=== PATIENT | female | born 1960 | race Caucasian/White ===

== ENCOUNTER 2018-09-15 08:36 | Emergency (ER) | payer MEDICAID ==
--- NOTE | 2018-09-15 09:08 | EDM.PDOC ---
ED HPI GENERAL MEDICAL PROBLEM - General Chief Complaint: Lower Extremity Injury/Pain Stated Complaint: PAIN AND SWELLING IN R KNEE Time Seen by Provider: 09/15/18 09:00 - History of Present Illness INITIAL COMMENTS - FREE TEXT/NARRATIVE: patient presents with new onset right knee swelling and pain, unable to walk on it. Hurts to bend it. No injury (that she is aware of, however, has some significant short-term memory loss.) Son lives nearby, watches over her pretty closely. She has taken ibuprofen with no effect, hasn't tried anything else. Feels well otherwise, no fatigue, fevers, chills, sweats. No redness to knee. No known tick exposures; doesn't spent much time outside. Left wrist swelling also which she states is chronic, son doesn't think so. Right Knee Pain Score (Numeric/FACES): 8 - Related Data Allergies Allergy/AdvReac Type Severity Reaction Status Date / Time bee venom protein (honey bee) Allergy Swelling Verified 09/15/18 08:48 Home Meds: Home Meds Furosemide 40 mg PO DAILY 09/15/18 [History] Lisinopril 10 mg PO DAILY 09/15/18 [History] Meloxicam [Mobic] 7.5 mg PO DAILY #5 tablet 09/15/18 [Rx] Potassium Chloride 20 meq PO DAILY 09/15/18 [History] Pregabalin [Lyrica] 75 mg PO DAILY 09/15/18 [History] Past Medical History Cardiovascular History: Reports: Hypertension Respiratory History: Reports: COPD, Other (See Below) Other Respiratory History: septic pneumonia July 2018 Musculoskeletal History: Reports: Other (See Below) Other Musculoskeletal History: chronic left wrist swelling Social & Family History - Tobacco Use Smoking Status *Q: Current Every Day Smoker ED ROS GENERAL - Review of Systems Review Of Systems: ROS reveals no pertinent complaints other than HPI. ED EXAM, GENERAL - Physical Exam Exam: See Below Free Text/Narrative:: General: alert, pleasant no acute distress. Right knee: very slight swelling compared to left. Able to flex and extend with some pain, but has difficulty with any resisted flexion or extension due to pain, moving very slowly. Negative anterior/posterior drawer testing, but c/ o all over pain with varus/valgus stress. When fully extended, no palpable effusion, patella is not ballotable. There is no bruising or skin lesions, no erythema, not really even warm. Distal pulse and sensation are intact, no calf swelling. Left wrist is also swollen, although patient states is chronic. Swelling just above joint line on dorsal surface. No other obvious swollen joints. Course - Vital Signs Text/Narrative:: 2 days knee pain, no injury, patient otherwise feeling well, no signs of infection on exam. Will obtain xray. Discussed labs, patient states she is fine, given appearance I think this could be deferred. Last Recorded V/S: Last Vital Signs Temp 36.8 C 09/15/18 08:50 Pulse 67 09/15/18 08:50 Resp 18 09/15/18 08:50 BP 132/83 09/15/18 08:50 Pulse Ox 94 L 09/15/18 08:50 - Orders/Labs/Meds Orders: Active Orders 24 hr Category Date Time Status Knee 3V Rt [CR] Stat Exams 09/15/18 09:08 Taken - Re-Assessments/Exams Free Text/Narrative Re-Assessment/Exam: 09/15/18 09:45 xray reviewed, lateral compartment joint space narrowing, no fracture seen. Discussed NSAID use (takes ibuprofen chronically 800mg TID), trying naproxen - which has previously thought didn't help, alternately could try something like meloxicam, agreeable to short script. Discussed also ice, trying yolanda wrap, topical creams. Has walker at home (in car actually) but really doesn't like to use it. Followup with PCP for further workup. She is in agreement with this plan and has no further questions. Departure - Departure Time of Disposition: 09:58 Disposition: Home, Self-Care 01 Clinical Impression: Right knee pain Qualifiers: Chronicity: acute Qualified Code(s): M25.561 - Pain in right knee - Discharge Information *PRESCRIPTION DRUG MONITORING PROGRAM REVIEWED*: Not Applicable *COPY OF PRESCRIPTION DRUG MONITORING REPORT IN PATIENT NATHAN: Not Applicable Prescriptions: Meloxicam [Mobic] 7.5 mg PO DAILY #5 tablet Instructions: Knee Pain, Adult, [id number] Referrals: Eddi Serrato MD [Primary Care Provider] - Forms: ED Department Discharge Additional Instructions: recommend followup with PCP do try to maintain strength as able and ability to walk Rx given for meloxicam to try instead of ibuprofen for a couple days. Allow 6 hours after last dose of ibuprofen before starting. Also recommend icing regularly, anything topical that helps is fine. if redness, increased swelling, fever, feeling unwell, and unable to flex/ extend knee at all due to pain, return to ED as these are signs of possible infection. - My Orders Last 24 Hours: My Active Orders 09/15/18 09:08 Knee 3V Rt [CR] Stat - Assessment/Plan Last 24 Hours: My Active Orders 09/15/18 09:08 Knee 3V Rt [CR] Stat
--- NOTE | 2018-09-15 11:25 | CR ---
INDICATION: Right knee pain and swelling, no history of injury. RIGHT KNEE: Three views of the right knee were obtained 09/15/18 - no comparisons. There is a bulge at the suprapatellar bursa, compatible with a knee joint effusion. Hypertrophic degenerative changes are noted laterally off the tibia and off the patellofemoral joint surfaces. The patellofemoral joint space appears to be fairly well-maintained. There is also medial hypertrophic change off the femur and to some extent laterally also off the femur. Sclerosis is noted with narrowing of lateral femorotibial joint space. A fracture or dislocation was not identified. Overall bone density appeared to be normal. IMPRESSION: 1. Osteoarthritis with narrowing of the lateral femorotibial joint space and hypertrophic changes at the femorotibial and patellofemoral joint surfaces. 2. Joint effusion. MTDD
== END 2018-09-15 10:15 | disposition home or self-care (01) ==
LOC: FB.ED 08:36
DX: M25.561 Pain in right knee (principal); I10 Essential (primary) hypertension; J44.9 Chronic obstructive pulmonary disease, unspecified; F17.200 Nicotine dependence, unspecified, uncomplicated; Z91.030 Bee allergy status; Z79.899 Other long term (current) drug therapy
CPT/HCPCS: 73562-RT; 99284-25